=== PATIENT | female | born 1960 | race Caucasian/White ===

== ENCOUNTER 2018-12-29 11:44 | Emergency (ER) | payer SELFPAY ==
[~2018-12-29] VITALS: Ht 152.4 cm; Wt 59.9 kg
[2018-12-29 12:04] VITALS: BP 193/134
[2018-12-29 12:29] LABS: BASOPHILS # (AUTO) 0.05 x10^3/uL (0-0.1); BASOPHILS % (AUTO) 1 % (0-1); EOSINOPHILS # (AUTO) 0.28 x10^3/uL (0-0.4); EOSINOPHILS % (AUTO) 3 % (1-7); LYMPHOCYTES # (AUTO) 1.56 x10^3/uL (1-3.4); LYMPHOCYTES % (AUTO) 19 % (22-44); MD NO; MEAN CORPUSCULAR HEMOGLOBIN 30.7 pg (27.0-34.8); MEAN CORPUSCULAR VOLUME 93.2 fL (80-100); MEAN PLATELET VOLUME 7.5 fL (7.4-10.4); MONOCYTES # (AUTO) 0.43 x10^3/uL (0.2-0.8); MONOCYTES % (AUTO) 5 % (2-9); NEUTROPHILS # (AUTO) 5.75 x10^3/uL (1.8-6.8); NEUTROPHILS % (AUTO) 71 % (42-75); PLATELET COUNT 425 x10^3/uL (130-400); RED BLOOD COUNT 4.67 x10^6/uL (3.82-5.3); RED CELL DISTRIBUTION WIDTH 16.4 % (9.6-15.2)
[2018-12-29] MEDS ORDERED: HYDROcodone/APAP 5/325 TABLET ONE (12:38)
[2018-12-29 12:43] LABS: ALBUMIN 3.6 g/dL (3.4-5.0); ANION GAP 3 mmol/L (5-15); CALCIUM 9.3 mg/dL (8.5-10.1); CHLORIDE 112 mmol/L (98-107); CREATININE 0.78 mg/dL (0.55-1.02)
[2018-12-29] MEDS ORDERED: HYDROcodone/APAP 5/325 TABLET PO ONE (13:00)
== END 2018-12-29 13:28 | disposition home or self-care (01) ==
LOC: ED 13:19
DX: M25.511 Pain in right shoulder (principal); L24.9 Irritant contact dermatitis, unspecified cause; M75.91 Shoulder lesion, unspecified, right shoulder; F17.210 Nicotine dependence, cigarettes, uncomplicated; I10 Essential (primary) hypertension
CPT/HCPCS: 36415; 80048; 82040; 85025; 99284

== ENCOUNTER 2019-01-06 12:13 | Emergency (ER) | payer MEDICAID, OTHER ==
--- NOTE | 2019-01-06 12:18 | NUR ---
PT NOT IN LOBBY, NO ANSWER X1
--- NOTE | 2019-01-06 12:28 | NUR ---
NO ANSWER X2
--- NOTE | 2019-01-06 12:43 | NUR ---
NO ANSWER X3
== END 2019-01-06 12:45 | disposition left against medical advice (07) ==
LOC: ED 12:39
DX: M25.511 Pain in right shoulder (principal); Z53.21 Procedure and treatment not carried out due to patient leaving prior to being seen by health care provider

== ENCOUNTER 2019-02-21 10:00 | Emergency (ER) | payer MEDICAID ==
[~2019-02-21] VITALS: Ht 152.4 cm; Wt 57.0 kg
[2019-02-21 10:03] VITALS: BP 168/91
[2019-02-21] MEDS ORDERED: HYDROcodone/APAP 5/325 TABLET ONE (10:26)
[2019-02-21] MEDS ORDERED: HYDROcodone/APAP 5/325 TABLET PO ONE (10:30)
== END 2019-02-21 11:09 | disposition home or self-care (01) ==
LOC: ED 10:39
DX: S46.811A Strain of other muscles, fascia and tendons at shoulder and upper arm level, right arm, initial encounter (principal); I10 Essential (primary) hypertension; F17.200 Nicotine dependence, unspecified, uncomplicated; X58.XXXA Exposure to other specified factors, initial encounter; Y93.89 Activity, other specified; Y92.89 Other specified places as the place of occurrence of the external cause; Y99.8 Other external cause status
CPT/HCPCS: 99283

== ENCOUNTER 2019-04-13 15:39 | Emergency (ER) | payer MEDICAID ==
[~2019-04-13] VITALS: Ht 152.4 cm; Wt 57.2 kg
[2019-04-13 16:10] VITALS: BP 150/78
--- NOTE | 2019-04-13 18:19 | NUR ---
NO ANSWER IN LOBBY
--- NOTE | 2019-04-13 18:32 | NUR ---
NO ANSWER IN LOBBY
--- NOTE | 2019-04-13 18:56 | NUR ---
NO ANSWER IN LOBBY
== END 2019-04-13 18:58 | disposition left against medical advice (07) ==
LOC: ED 18:52
DX: M25.511 Pain in right shoulder (principal)
CPT/HCPCS: 99156; 99157; 99281

== ENCOUNTER → 2019-04-13 | Outpatient (CLI) | payer MEDICAID ==
[~2019-04-13] MED LIST: FENTANYL PF 100 MCG/2ML ONE; LOSA25TA25 PO; MIDAZOLAM 1 MG/ML, 5ML ONE; ROBAXIN PO
== END | disposition home or self-care (01) ==
LOC: RAD 12:43
PROVIDERS: ATTEND Orthopaedic Surgery
DX: Z02.9 Encounter for administrative examinations, unspecified (principal)
CPT/HCPCS: J2250; J3010

== ENCOUNTER 2019-04-29 17:05 | Inpatient (IN) | payer OTHER ==
[~2019-04-29] VITALS: Ht 152.4 cm; Wt 62.6 kg
[~2019-04-29 17:05] MED LIST changes: -FENTANYL PF 100 MCG/2ML ONE; -MIDAZOLAM 1 MG/ML, 5ML ONE
[2019-04-29] MEDS ORDERED: SODIUM CHLORIDE 0.9% 1,000 ML IV SCH (17:52)
[2019-04-29] MEDS ORDERED: SCOPOLAMINE PATCH, 1.5MG PATCH.TD72 TD SCH (18:00)
[2019-04-29] MEDS ORDERED: ONDANSETRON 2MG/ML, 2ML IVPush PRN (18:00)
[2019-04-29] MEDS ORDERED: MORPHINE SULFATE 4 MG/ML, 1ML IVPush PRN ×3 (18:00)
[2019-04-29] MEDS: LORazepam 2 MG/ML, 1ML IVPush PRN (21:51)
[2019-04-30] MEDS: LORazepam 2 MG/ML, 1ML IVPush PRN (01:57)
[2019-04-30] MEDS: ATROPINE OPHTH SOLN 1%, 5ML BC PRN ×2 (13:22→20:38)
[2019-05-01] MEDS ORDERED: LORazepam 2 MG/ML, 1ML IVPush PRN (16:00)
[2019-05-01] MEDS: PLEASE ENTER HEIGHT AND WEIGHT MC SCH (17:27)
[2019-05-01] MEDS: LORazepam 2 MG/ML, 1ML IVPush SCH (23:21)
[2019-05-02] MEDS: PLEASE ENTER HEIGHT AND WEIGHT MC SCH (00:36)
[2019-05-02] MEDS: LORazepam 2 MG/ML, 1ML IVPush SCH (05:49)
[2019-05-02] MEDS: ATROPINE OPHTH SOLN 1%, 5ML BC PRN ×2 (05:49→08:26)
== END 2019-05-02 12:05 | disposition expired | DRG 871 ==
LOC: CCU 18:13 → 3NW 18:22
PROVIDERS: ADMIT Internal Medicine; ATTEND Internal Medicine
PROC: 5A1D70Z Performance of Urinary Filtration, Intermittent, Less than 6 Hours Per Day (ICD-10-PCS; principal; 2019-04-29)
PROC: 0D9670Z Drainage of Stomach with Drainage Device, Via Natural or Artificial Opening (ICD-10-PCS; 2019-04-29)
DX: A41.9 Sepsis, unspecified organism (principal); J96.01 Acute respiratory failure with hypoxia; N17.0 Acute kidney failure with tubular necrosis; R65.21 Severe sepsis with septic shock; J18.9 Pneumonia, unspecified organism; E87.1 Hypo-osmolality and hyponatremia; K81.0 Acute cholecystitis; K31.1 Adult hypertrophic pyloric stenosis; N39.0 Urinary tract infection, site not specified; J44.0 Chronic obstructive pulmonary disease with (acute) lower respiratory infection; C77.3 Secondary and unspecified malignant neoplasm of axilla and upper limb lymph nodes; K86.89 Other specified diseases of pancreas; C80.1 Malignant (primary) neoplasm, unspecified; F41.9 Anxiety disorder, unspecified; G89.29 Other chronic pain; I10 Essential (primary) hypertension; Z51.5 Encounter for palliative care; M25.511 Pain in right shoulder; Z66 Do not resuscitate
CPT/HCPCS: G0378; J2270; J2060; J7030